=== PATIENT | female | born 1985 | race Caucasian/White ===

== ENCOUNTER 2021-05-05 14:53 | Emergency (ER) | payer OTHER, SELFPAY ==
[~2021-05-05] VITALS: Ht 162.6 cm; Wt 91.6 kg
--- NOTE | 2021-05-05 15:20 | NUR ---
Pt ambulatory to room 7. Awake, alert and oriented x 3. Tearful; reporting intermittent vaginal bleeding since yesterday. First . Urine cup provided. Awaiting MD evaluation.
--- NOTE | 2021-05-05 15:25 | NUR ---
Dr Isabel to bedside to assess patient
--- NOTE | 2021-05-05 15:35 | NUR ---
Pt to ultrasound ambulatory
[2021-05-05 16:05] VITALS: BP_SYST 114
--- NOTE | 2021-05-05 16:32 | NUR ---
Placed 2nd call for ultrasound request. Waiting for pt. to be picked up.
--- NOTE | 2021-05-05 16:36 | NUR ---
called lab for uranalisis results.
[2021-05-05 16:45] LABS: BILIRUBIN,URINE NEGATIVE (NEGATIVE); BLOOD, URINE 1+ (NEGATIVE); COLOR,URINE YELLOW (YELLOW); GLUCOSE,URINE NEGATIVE (NEGATIVE); KETONES,URINE NEGATIVE (NEGATIVE); LEUKOCYTE ESTERASE ,URINE NEGATIVE (NEGATIVE); NITRITE, URINE NEGATIVE (NEGATIVE); PROTEIN URINE NEGATIVE (NEGATIVE); UROBILINOGEN,URINE 0.2 (0.2-1.0)
[2021-05-05 16:51] LABS: CLARITY/URINE SLIGHTLY HAZY (CLEAR)
[2021-05-05 17:31] LABS: BACTERIA,URINE FEW /HPF (None Seen); RBC,URINE 0-3 /HPF (0-3); WBC,URINE 0-3 /HPF (0-3)
[2021-05-05 17:32] LABS: MUCUS,URINE None Seen /LPF (None Seen); URINE AMORPHOUS PHOSPHATES 1+ /HPF (None Seen)
--- NOTE | 2021-05-05 18:17 | NUR ---
Patient awating ultrasound results. Resting in bed; in NAD. Will continue to monitor closely.
--- NOTE | 2021-05-05 19:13 | NUR ---
Report given to Nena ALVARADO to assume care of patient
--- NOTE | 2021-05-05 20:20 | NUR ---
Patient given written and verbal discharge instructions and verbalizes understanding. ER MD discussed with patient the results and treatment provided. Patient in stable condition. ID arm band removed. IV catheter removed intact and dressing applied, no active bleeding. . Patient educated on pain management and to follow up with PMD. Pain Scale . Opportunity for questions provided and answered. Medication side effect fact sheet provided. PATIENT SEEN LEAVING THE ER AMBULATING WITH STEADY GAIT. PATIENT VERBALIZED UNDERSTANDING
[2021-05-05 20:21] VITALS: BP_SYST 120
== END 2021-05-05 20:21 | disposition home or self-care (01) ==
LOC: SED 14:53
DX: O03.9 Complete or unspecified spontaneous abortion without complication (principal)
CPT/HCPCS: 36415; 76801; 76817; 81000; 84702; 86900; 86901; 99284